=== PATIENT | male | born 2000 | race African-American/Black ===

== ENCOUNTER 2019-10-16 01:22 | Emergency (ER) | payer MEDICAID ==
[2019-10-16] MEDS ORDERED: Haloperidol Lactate 5 MG/ML SDV IM ONE (02:04)
[2019-10-16] MEDS ORDERED: LORazepam 1 MG Tab PO ONE (02:04)
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
[2019-10-16] MEDS ORDERED: Haloperidol Lactate 5 MG/ML SDV ONE (02:13)
[2019-10-16 02:52] LABS: BLOOD UREA NITROGEN,BUN 11 mg/dL (7.0-18.0); CARBON DIOXIDE,CO2 25.6 mmol/L (21.0-32.0); CHLORIDE,CL 103 mmol/L (98-107); GLUCOSE RANDOM 100 mg/dL (74-106); POTASSIUM,K 3.7 mmol/L (3.5-5.1); SODIUM,NA 139 mmol/L (136-148)
[2019-10-16 02:57] LABS: ACETAMINOPHEN <2.0 ug/mL
== END 2019-10-16 04:50 ==
LOC: MW.ED 01:22
DX: S51.811A Laceration without foreign body of right forearm, initial encounter (principal); F32.9 Major depressive disorder, single episode, unspecified; F41.9 Anxiety disorder, unspecified; Z87.891 Personal history of nicotine dependence; X78.8XXA Intentional self-harm by other sharp object, initial encounter
CPT/HCPCS: 36415; 80053; 80305; 80307; 81001; 83735; 84443; 84484; 85025; 93005; 96372; 99285; A9270; J1630